=== PATIENT | female | born 1985 | race African-American/Black ===

== ENCOUNTER 2017-04-26 10:41 | Outpatient (CLI) | payer SELFPAY | END 2017-04-26 10:42 | disposition home or self-care (01) | LOC: LABLEX 10:41 | PROVIDERS: ATTEND Family Medicine | DX: R10.2 Pelvic and perineal pain (principal) | CPT/HCPCS: 87086 ==

== ENCOUNTER 2017-10-28 08:27 | Emergency (ER) | payer SELFPAY ==
[2017-10-28] MEDS ORDERED: Ibuprofen 800 MG TAB ONE (08:45)
[2017-10-28] MEDS ORDERED: Oseltamivir 75 MG CAP ONE (08:50)
[2017-10-28 08:58] LABS: Bilirubin Negative (Negative); Blood, Urine Trace (Negative); Clarity Cloudy (Clear); Glucose, Urine (Dipstick) Negative (Negative); Leukocyte Negative (Negative); Nitrite Negative (Negative); Protein, Urine (Dipstick) Negative (Neg-Trace); Specific Gravity, Urine 1.025 (1.005-1.030); Urobilinogen 0.2 mg/dL (0.2-1.0); pH, Urine 5.5 (5.0-9.0)
[2017-10-28 09:10] LABS: Bacteria/HPF 1+ HPF (None Seen); RBC/HPF None Seen HPF (0-3); WBC/HPF 0-3 HPF (0-3); Yeast-All Forms Rare HPF (None Seen)
[2017-10-28] MEDS ORDERED: Benzonatate 100 MG CAP ONE (09:16)
[2017-10-28] MEDS ORDERED: traMADol HCl 50 MG TAB ONE (09:16)
== END 2017-10-28 09:20 | disposition home or self-care (01) ==
LOC: BURERS 08:27
DX: J11.1 Influenza due to unidentified influenza virus with other respiratory manifestations (principal); F17.210 Nicotine dependence, cigarettes, uncomplicated
CPT/HCPCS: 81003; 81015; 99283

== ENCOUNTER 2018-05-06 19:29 | Emergency (ER) | payer BC, SELFPAY ==
[2018-05-06] MEDS ORDERED: Ondansetron HCl/PF 4 MG/2 ML Vial ONE (20:05)
[2018-05-06] MEDS ORDERED: Sodium Chloride 0.9% 100 ML ONE (20:05)
[2018-05-06] MEDS ORDERED: cefTRIAXone\\ROCEPHIN 1 GM VIAL ONE (20:05)
[2018-05-06] MEDS ORDERED: Ketorolac Tromethamine 30 MG/ML VIAL ONE (20:05)
[2018-05-06 20:22] LABS: Anion Gap 15 mmol/L (10-20); BUN (Urea Nitrogen) 11 mg/dL (7.0-18.7); Calc. Creatinine Clearance 0 mL/min (70-130); Calcium 8.9 mg/dL (7.8-10.44); Carbon Dioxide 21 mmol/L (22-29); Chloride 107 mmol/L (98-107); Estimated GFR-MDRD 82; Glucose 106 mg/dL (70-105); Potassium 3.9 mmol/L (3.5-5.1); Sodium 139 mmol/L (136-145)
[2018-05-06 20:27] LABS: Hemoglobin 10.3 g/dL (12.0-16.0); Mean Corpuscular HGB CONC 34.1 g/dL (32.0-36.0); Mean Corpuscular Hemoglobin 22.2 pg (27.0-31.0); Mean Corpuscular Volume 65.2 fL (78.0-98.0); Mean Platelet Volume 5.7 fL (7.4-10.4); Platelet Count 273 thou/uL (130-400); RBC Distribution Width 12.9 % (11.5-14.5); Red Blood Cell (RBC) Count 4.62 mill/uL (4.20-5.40); White Blood Cell (WBC) Count 12.4 thou/uL (4.8-10.8)
[2018-05-06 20:31] LABS: Band 15 % (5-11); Hypochromia MODERATE=16-30 cells (100X) (0-5/hpf); Lymphocytes 17 % (21-51); MDiff Complete? YES; Microcytosis MARKED = >30 cells (100X) (0-5/hpf); Monocytes 7 % (0-10); Neutrophil 59 % (42-75); Reactive Lymphocytes 2 % (0-10); Reflex for Review?? NO
[2018-05-06] MEDS ORDERED: methylPREDNISolone Sod Succ/PF 125 MG/2 ML VIAL ONE (20:50)
== END 2018-05-06 22:12 | disposition home or self-care (01) ==
LOC: BURERS 19:29
DX: J06.9 Acute upper respiratory infection, unspecified (principal); J02.9 Acute pharyngitis, unspecified; F17.210 Nicotine dependence, cigarettes, uncomplicated; Z79.899 Other long term (current) drug therapy
CPT/HCPCS: 80048; 85025; 96365; 96375; J0696; J1885; J2405; J2930; J7050